=== PATIENT | male | born 1980 | race Two or more races ===

== ENCOUNTER 2023-01-01 20:50 | Emergency (ER) | payer OTHER ==
[~2023-01-01] VITALS: Ht 152.4 cm; Wt 72.7 kg
[2023-01-01 21:13] VITALS: BP 140/94
== END 2023-01-02 00:23 | disposition home or self-care (01) ==
LOC: ER 20:53
DX: S20.212A Contusion of left front wall of thorax, initial encounter (principal); R10.2 Pelvic and perineal pain; M79.675 Pain in left toe(s); V43.62XA Car passenger injured in collision with other type car in traffic accident, initial encounter; Y93.89 Activity, other specified; Y92.89 Other specified places as the place of occurrence of the external cause; Y99.8 Other external cause status
CPT/HCPCS: 71045; 73630